=== PATIENT | female | born 1960 | race Caucasian/White ===

== ENCOUNTER 2017-12-22 06:48 | Inpatient (IN) | payer OTHER ==
[~2017-12-22] VITALS: Ht 167.6 cm; Wt 136.1 kg
--- NOTE | ~2017-12-22 | HC ---
[facility] [place] [address] CONSULTATION Name: GERI WALLIS Room #: 224-P [facility] IN M.R.#: [id number] Admission: 12/22/17 Attend Phys: Maximiliano Salazar MD Discharge: 12/27/17 Date of : 56 Report #: [id number] THIS REPORT FOR: //name// CC: FAM physician/PCP Maximiliano Salazar DATE OF SERVICE: 12/24/2017 WOUND CARE CONSULTATION PERSONAL PHYSICIAN: Dr. Salazar. CHIEF COMPLAINT: Lower extremity cellulitis. HISTORY OF PRESENT ILLNESS: This is a 57-year-old morbidly obese white female with a history of diabetes mellitus and lymphedema, who presented through the Emergency Department after a fall. The patient states that she has had progressive pain in her left leg and it was so bad this morning that she was unable to ambulate. The patient also has noticed redness and swelling in her right lower extremity, which started approximately 2 weeks ago. The patient states that she did not seek any medical care as of yet. The patient denies actual fevers or chills; however, the pain in both lower extremities is what brought her to the Emergency Department. The patient was noted in the Emergency Department to have cellulitis and stasis dermatitis in the right lower extremity with multiple superficial open ulcerations. We have been asked to assist in the care of these at this time. PAST MEDICAL HISTORY: Significant for hypertension, hypothyroidism, hyperlipidemia, depression, morbid obesity, diabetes mellitus. CURRENT MEDICATIONS: Multiple. I reviewed the patient's medication list. DRUG ALLERGIES: Multiple. I reviewed the patient's allergies. SOCIAL HISTORY: The patient has a history of smoking, quit several years ago. Drinks alcohol socially. FAMILY HISTORY: Not pertinent to current medical condition. REVIEW OF SYSTEMS: CONSTITUTIONAL: The patient denies fevers or chills. NEUROLOGIC: The patient has overall generalized weakness, but denies isolated arms or leg weakness. EYES: No complaints. ENT: No complaints. CARDIAC: The patient has chronic lower extremity edema, but denies chest pain [facility] [address] [place] [address] CONSULTATION Name: GERI WALLIS Room #: [address] [place] [address] [place] .R.#: [id number] Admission: 12/22/17 Attend Phys: Maximiliano Salazar MD Discharge: 12/27/17 Date of : 56 Report #: [id number] or palpitations. RESPIRATORY: The patient denies shortness of breath, cough or wheezes. GASTROINTESTINAL: The patient denies nausea, vomiting or abdominal pain. GENITOURINARY: The patient denies urgency or frequency. MUSCULOSKELETAL: No complaints. SKIN: The patient has bilateral lymphedema with cellulitis on the right lower extremity with associated open venous stasis ulcerations, all of which appear superficial. PHYSICAL EXAMINATION: VITAL SIGNS: Stable. The patient is afebrile. GENERAL: This is an alert and oriented x 3, morbidly obese white female who is in no acute distress. HEENT: Normocephalic, atraumatic. Mucous membranes are moist. Pupils are round. Sclerae are white. NECK: Supple, nontender, without JVD. LUNGS: Clear. HEART: Regular, without murmur. ABDOMEN: Obese, soft, nontender. EXTREMITIES: The patient moves all extremities without difficulty. Evaluation of right lower extremity reveals 4+ edema with multiple superficial crusty ulcerations, which have serous drainage noted. There is no purulence. There is extreme warmth and tenderness to palpation. Distal pulses are intact, 1+ dorsalis pedis and posterior tibial. Left lower extremity has no signs of cellulitis, but does have 3+ edema and stasis dermatitis changes. NEUROLOGIC: Cranial nerves 2-12 are grossly intact. Motor and sensory are grossly intact. LABORATORY DATA: White count 9.7, hemoglobin 11.2, albumin 2.8. IMPRESSION: 1. Cellulitis, right lower extremity with multiple superficial ulcerations secondary to #2. 2. Venous insufficiency with secondary lymphedema. 3. Protein-calorie malnutrition -- moderate with albumin 2.8. 4. Morbid obesity. 5. Diabetes mellitus type 2. PLAN: At this time, we will continue using morphine, Silvadene compound to the right lower extremity ulcerations, cover this with Xeroform, ABD and Kerlix. We will change this twice daily. IV antibiotics have already been started. We will continue all other current medications. We will make sure we maximize the [address] [address] CONSULTATION Name: GERI WALLIS Room #: 224-P DIS IN M.R.#: [id number] Admission: 12/22/17 Attend Phys: Maximiliano Salazar MD Discharge: 12/27/17 Date of : 56 Report #: [id number] patient's oral protein supplementation for healing and we will continue to follow the patient. By: 1300 1611 Derek Perez MD /nt
--- NOTE | ~2017-12-22 | HC ---
[facility] [place] [address] CONSULTATION Name: GERI WALLIS Room #: 463-P ADM IN M.R.#: [id number] Admission: 12/22/17 Attend Phys: Maximiliano Salazar MD Discharge: Date of : 56 Report #: [id number] THIS REPORT FOR: //name// CC: [facility] physician/PCP Maximiliano Salazar REASON FOR CONSULTATION: I was asked to evaluate concerning right lower extremity cellulitis. HISTORY OF PRESENT ILLNESS: The patient was a 57-year-old with underlying diabetes, obesity, chronic lymphedema, who has had swelling in her right lower extremity with erythema for the past 10 days. 3 days ago, she slid off her chair injuring the left upper leg. She has had pain in the groin region since then. She presents to the Emergency Room because of such. No fever, chills or sweats recorded. REVIEW OF SYSTEMS: Notes no cardiopulmonary, GI or complaints. She has been gaining weight over the last several months. Diabetes is not being treated at this time. 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 Previously has been treated for hypertension, hypothyroidism and diabetes. ALLERGIES: DENIES ANY ALLERGIES, ALTHOUGH ON HER MEDICAL RECORD, IT SAYS HYDROCHLOROTHIAZIDE, METAL AND LOSARTAN. She was given vancomycin in the Emergency Room. PAST MEDICAL HISTORY: Significant for hypertension, hypothyroidism, hyperlipidemia, diabetes, morbid obesity, depression, chronic headaches, fibrocystic breast disease, ORIF of her right elbow, pneumonia in 2009. FAMILY HISTORY: Noncontributory. SOCIAL HISTORY: Past smoker, no significant alcohol intake. PHYSICAL EXAMINATION: VITAL SIGNS: Afebrile and hemodynamically stable. GENERAL: Alert and cooperative. Morbidly obese. HEENT: Unremarkable. NEUROLOGIC: Intact. NECK: Supple. LUNGS: Clear. HEART: Regular, without murmur. ABDOMEN: Soft and nontender. EXTREMITIES: Left upper thigh was mildly tender. Full range of motion in her hip. Right lower extremity with venous stasis ulcerations, pretibial and one small area to the medial mid upper calf region. She had erythroderma involving [facility] [address] [place] [address] CONSULTATION Name: GERI WALLIS Room #: 463-P ADM IN [facility].#: [id number] Admission: 12/22/17 Attend Phys: Maximiliano Salazar MD Discharge: Date of : 56 Report #: [id number] her right foot to her proximal thigh. No inguinal adenopathy noted. Moderate tenderness. Pulses in her foot normal. Sensation intact. LABORATORY STUDIES: Sodium 139, potassium 4.2, bicarbonate 30, creatinine 0.8. Liver function test normal. Albumin at 2.8. WBC 10, hemoglobin 12.4, and platelet count is 323,000, differential unremarkable. Urinalysis unremarkable. Lactate 1.8. Ultrasound of right lower extremity negative for DVT. IMPRESSION: A 57-year-old diabetic with obesity, venous stasis disease, presents now with cellulitis of her right lower extremity. Much of this is chronic venous disease. Also, has a soft tissue injury to the left thigh after a fall. RECOMMENDATIONS: We will continue with cefazolin, leg elevation, compression, diuretics. Control blood glucose and get the patient on a low calorie diet. <ELECTRONICALLY SIGNED> By: Dhruv Romero MD 12/23/17 1054 [id number] Dhruv Romero MD /nt
[~2017-12-22 06:48] MED LIST: ATENOLOL 100MG100 M2 PO; FLOMAX PO; GLUCOPHAGE500 MG PO; KEFLEX500 MG PO; NORCO 5-325 TA1 EACH PO; PEPCID40 MG PO; PHENERGAN 25 MG25 M1 PO; SYNTHROID200 MCG PO; TRICOR145 MG PO
[2017-12-22 06:49] VITALS: BP 190/106
[2017-12-22 07:31] LABS: ABSOLUTE NEUTROPHILS 7.8 thou/uL (1.4-8.2); BASOPHILS 0.7 % (0.0-2.0); EOSINOPHILS 1.8 % (0.0-3.0); HEMATOCRIT 36.2 % (37.0-47.0); HEMOGLOBIN 12.4 gm/dL (12.0-15.0); LYMPHOCYTES 13.8 % (24.0-44.0); MCH 28.5 pg (26.0-34.0); MCHC 34.2 g/dL (28.0-37.0); MCV 83.1 fL (80.0-100.0); MONOCYTES 6.4 % (1.0-8.0); PLATELET COUNT 323 thou/uL (150-400); POLYS 77.3 % (36.0-66.0); RBC 4.35 mil/uL (4.20-5.00); RDW 15.4 % (10.5-14.5); WBC 10.1 thou/uL (4.0-11.0)
[2017-12-22 07:41] LABS: URINE BILIRUBIN NEGATIVE (Negative); URINE BLOOD NEGATIVE (Negative); URINE CLARITY CLEAR; URINE COLOR YELLOW; URINE GLUCOSE-RANDOM* NEGATIVE (Negative); URINE KETONES NEGATIVE (Negative); URINE LEUKOCYTES NEGATIVE (Negative); URINE NITRITE NEGATIVE (Negative); URINE PROTEIN (DIPSTICK) NEGATIVE (Negative); URINE SPECIFIC GRAVITY <= 1.005 (1.005-1.035); URINE UROBILINOGEN 0.2 E.U./dl (0.2-1.0)
[2017-12-22 07:54] LABS: ANION GAP 8 mmol/L (7-16); BUN 9 mg/dL (7-18); CALCIUM 8.8 mg/dL (8.5-10.1); CHLORIDE 101 mmol/L (98-107); CO2 30 mmol/L (21-32); CREATININE 0.8 mg/dL (0.6-1.0); GLUCOSE 141 mg/dL (74-106); POTASSIUM 4.2 mmol/L (3.5-5.1)
[2017-12-22 07:57] LABS: SODIUM 139 mmol/L (136-145)
[2017-12-22 07:59] LABS: ALBUMIN 2.8 g/dL (3.4-5.0); DIRECT BILIRUBIN < 0.1 mg/dL (<0.1-0.3); SGOT 25 U/L (15-37); SGPT 30 U/L (30-65); TOTAL BILIRUBIN 0.4 mg/dL (<0.1-1.0); TOTAL PROTEIN 8.5 g/dL (6.4-8.2)
[2017-12-22 10:59] LABS: TSH 21.034 uIU/mL (0.358-3.740)
[2017-12-22 13:09] VITALS: BP 178/105
[2017-12-22 14:50] VITALS: BP 136/82
[2017-12-22 16:29] VITALS: BP 185/101
[2017-12-22 20:07] VITALS: BP 121/66
[2017-12-23] VITALS (7 sets, daily range): BP systolic 95–139; BP diastolic 47–88
[2017-12-23 02:05] LABS: GLYCOHEMOGLOBIN (HGB A1C) 6.9 % (4.8-5.6)
[2017-12-23 06:00] LABS: BASOPHILS 0.5 % (0.0-2.0); EOSINOPHILS 1.6 % (0.0-3.0); HEMOGLOBIN 11.2 gm/dL (12.0-15.0); LYMPHOCYTES 8.6 % (24.0-44.0); MCH 28.1 pg (26.0-34.0); MCHC 32.9 g/dL (28.0-37.0); MCV 85.4 fL (80.0-100.0); MONOCYTES 6.7 % (1.0-8.0); PLATELET COUNT 316 thou/uL (150-400); POLYS 82.6 % (36.0-66.0); RBC 3.98 mil/uL (4.20-5.00); RDW 15.5 % (10.5-14.5); WBC 9.7 thou/uL (4.0-11.0)
[2017-12-23 06:07] LABS: CREATININE 0.8 mg/dL (0.6-1.0); MAGNESIUM 1.9 mg/dL (1.8-2.4); POTASSIUM 4.3 mmol/L (3.5-5.1)
[2017-12-23 06:33] LABS: CHOLESTEROL 137 mg/dL (<200); HDL CHOLESTEROL 34 mg/dL (>40); LDL CHOLESTEROL 90 mg/dL (<100); SERUM ASSESSMENT Clear; TRIGLYCERIDE 67 mg/dL (<150); VLDL 13 mg/dL (<40)
[2017-12-24 08:30] VITALS: BP 140/75
[2017-12-24 20:00] VITALS: BP 118/76
[2017-12-25 08:40] VITALS: BP 134/67
[2017-12-25 20:43] VITALS: BP 135/72
[2017-12-26 08:05] VITALS: BP 143/69
[2017-12-27 07:35] LABS: HEMATOCRIT 39.2 % (37.0-47.0); HEMOGLOBIN 12.8 gm/dL (12.0-15.0); MCH 28.1 pg (26.0-34.0); MCHC 32.7 g/dL (28.0-37.0); RBC 4.55 mil/uL (4.20-5.00); RDW 15.8 % (10.5-14.5); WBC 7.4 thou/uL (4.0-11.0)
[2017-12-27 07:47] LABS: CALCIUM 8.9 mg/dL (8.5-10.1); CREATININE 0.9 mg/dL (0.6-1.0); POTASSIUM 4.2 mmol/L (3.5-5.1)
[2017-12-27 08:37] VITALS: BP 130/69
[2017-12-27] MEDS ORDERED: COLACE100 MG PO (14:17)
[2017-12-27] MEDS ORDERED: FELODIPINE ER10 MG PO (14:17)
[2017-12-27] MEDS ORDERED: SYNTHROID100 MC1 PO (14:17)
[2017-12-27] MEDS ORDERED: FOSINOPRIL SODI20 MG PO (14:17)
[2017-12-27] MEDS ORDERED: GLUCOPHAGE500 MG PO (14:17)
[2017-12-27] MEDS ORDERED: TYLENOL325 MG PO (14:17)
[2017-12-27] MEDS ORDERED: KEFLEX500 M1 PO (14:20)
[2017-12-27 15:20] VITALS: BP 130/69
== END 2017-12-27 16:05 | disposition home or self-care (01) | DRG 603 ==
LOC: ER 06:48 → 4W 09:11 → EROBS 09:11 → 4W 14:55 → SICU 12-23 17:57 → ENTRNSPT 12-27 15:43 → EDTRNSPTSTS 12-27 15:48 → SICU 12-27 16:05
PROVIDERS: Emergency Medicine; Hospitalist; Nurse Practitioner
DX: L03.115 Cellulitis of right lower limb (principal); Z68.42 Body mass index [BMI] 45.0-49.9, adult; E44.0 Moderate protein-calorie malnutrition; L97.819 Non-pressure chronic ulcer of other part of right lower leg with unspecified severity; I10 Essential (primary) hypertension; E03.9 Hypothyroidism, unspecified; F32.9 Major depressive disorder, single episode, unspecified; E66.01 Morbid (severe) obesity due to excess calories; E78.5 Hyperlipidemia, unspecified; E11.9 Type 2 diabetes mellitus without complications; I87.8 Other specified disorders of veins; I89.0 Lymphedema, not elsewhere classified; I16.0 Hypertensive urgency; S80.821A Blister (nonthermal), right lower leg, initial encounter; J44.9 Chronic obstructive pulmonary disease, unspecified; G44.89 Other headache syndrome; Z88.8 Allergy status to other drugs, medicaments and biological substances; T14.8XXA Other injury of unspecified body region, initial encounter; W18.39XA Other fall on same level, initial encounter; Y93.89 Activity, other specified; Y92.89 Other specified places as the place of occurrence of the external cause; Y99.8 Other external cause status; Z87.891 Personal history of nicotine dependence
CPT/HCPCS: 10040; 15002